=== PATIENT | male | born 1955 | race African-American/Black ===

== ENCOUNTER 2023-10-11 12:13 | Inpatient (IN) | payer OTHER ==
[2023-10-11 13:35] VITALS: BMI 28.7
[2023-10-11] MEDS ORDERED: guaiFENesin 600 MG TABLET.ER (FP) PO PRN (15:14)
[2023-10-11] MEDS ORDERED: NALOXONE HCL 0.4 MG/ML VIAL IM PRN (15:14)
[2023-10-11] MEDS ORDERED: BENZONATATE 200 MG CAPSULE PO PRN (15:14)
[2023-10-11] MEDS ORDERED: ACETAMINOPHEN 325 MG TABLET (FP) PO PRN (15:14)
[2023-10-11] MEDS ORDERED: BENZOCAINE/MENTHOL (CHLORASEPTIC ) LOZENGE MM PRN (15:14)
[2023-10-11] MEDS ORDERED: POLYETHYLENE GLYCOL (HEALTHYLAX) 3350 17 GM PACKET PO PRN (15:14)
[2023-10-11] MEDS ORDERED: IBUPROFEN 600 MG TABLET (FP) PO PRN (15:14)
[2023-10-11] MEDS ORDERED: MAG HYDROX/AL HYDROX/SIMETH 30 ML UNIT-DOSE CUP PO PRN (15:14)
[2023-10-11] MEDS ORDERED: hydrOXYzine PAMOATE 25 MG CAPSULE (FP) PO PRN (15:14)
[2023-10-11] MEDS ORDERED: IBUPROFEN 400 MG TABLET (FP) PO PRN (15:14)
[2023-10-11] MEDS ORDERED: MAGNESIUM HYDROX 2400MG/30ML ORAL SUSPENSION 30 ML CUP PO PRN (15:14)
[2023-10-11] MEDS ORDERED: LOPERAMIDE HCL 2 MG CAPSULE PO PRN (15:14)
[2023-10-11] MEDS ORDERED: NALOXONE HCL (KLOXXADO) 8 MG SPRAY NS PRN (15:14)
[2023-10-11] MEDS ORDERED: ASPIRIN 81 MG CHEWABLE TABLETS ONE (18:21)
[2023-10-11] MEDS: ASPIRIN 81 MG CHEWABLE TABLETS PO SCH (18:23)
[2023-10-11] MEDS ORDERED: ATORVASTATIN CA 80 MG TABLET (FP) PO SCH (22:00)
[2023-10-11] MEDS: MELATONIN 5 MG TABLETS PO SCH (22:45)
[2023-10-11] MEDS: THIAMINE HCL 100 MG TABLET (FP) PO SCH (22:46)
[2023-10-12] MEDS: PRENATAL VITAMINS W/ FOLIC ACID TABLET (FP) PO SCH (10:28)
[2023-10-12] MEDS: PATIENT'S OWN MEDICATION (NON-FORMULARY) (Losartan/Hydrochlorothiazide [Losartan-Hctz 100- PO SCH (10:28)
[2023-10-12] MEDS: TAMSULOSIN HCL 0.4 MG PO SCH (10:28)
[2023-10-12] MEDS: METOPROLOL SUCCINATE PO SCH (10:28)
[2023-10-12] MEDS: ASPIRIN 81 MG CHEWABLE TABLETS PO SCH (10:28)
[2023-10-12 11:38] LABS: HEMATOCRIT 37.7 % (35.4-49); HEMOGLOBIN 12.5 GM/dL (11.7-16.9); MCH 31.5 pg (25.7-33.7); MCHC 33.2 g/dl (32.0-35.9); MEAN CELL VOLUME 94.8 fl (80-96); MEAN PLT VOLUME 7.9 fl (7.5-11.1); PLATELET COUNT 176 10^3/uL (134-434); RBC 3.98 M/mm3 (4.00-5.60); RDW 13.2 % (11.9-15.9); WHITE BLOOD COUNT 6.4 K/mm3 (4.0-10.0)
[2023-10-12 12:05] LABS: CHLORIDE 109 mmol/L (98-107); POTASSIUM 3.7 mmol/L (3.5-5.1); SODIUM 144 mmol/L (136-145)
[2023-10-12 12:07] LABS: BLOOD UREA NITROGEN 15.9 mg/dL (7-18)
[2023-10-12 12:10] LABS: ANION GAP 6 mmol/L (4-13); CO2 29 mmol/L (21-32); GLUCOSE,RANDOM 109 mg/dL (74-106); SGOT/AST 18 U/L (15-37); SGPT/ALT 21 U/L (13-61)
[2023-10-12 12:11] LABS: ALBUMIN 2.9 g/dl (3.4-5.0); CREATININE 1.1 mg/dL (0.55-1.3)
[2023-10-12 12:12] LABS: BILIRUBIN,TOTAL 0.3 mg/dL (0.2-1); TOT PROT 6.5 g/dl (6.4-8.2)
[2023-10-12 12:13] LABS: ALK PHOS 77 U/L (45-117)
[2023-10-12 16:30] LABS: EPI CELLS 14 /uL (0-25.1); HYALINE CASTS 1 /uL (0-3.1); PH,URINE 5.5 (5.0-8.0); URINE APPEARANCE CLEAR; URINE BACTERIA 11 /uL (0-1359); URINE BILIRUBIN NEGATIVE (NEGATIVE); URINE COLOR YELLOW; URINE GLUCOSE (UA) NEGATIVE (NEGATIVE); URINE KETONE NEGATIVE (NEGATIVE); URINE LEUK ESTERASE 2+ (NEGATIVE); URINE NITRITE NEGATIVE (NEGATIVE); URINE PROTEIN NEGATIVE (NEGATIVE); URINE RBC 6 /uL (0-23.9); URINE UROBILINOGEN 0.2 mg/dL (0.2-1.0); URINE WBC 188 /uL (0-25.8)
[2023-10-12] MEDS: MELATONIN 5 MG TABLETS PO SCH (21:22)
[2023-10-12] MEDS: THIAMINE HCL 100 MG TABLET (FP) PO SCH (21:22)
[2023-10-12] MEDS: ATORVASTATIN CA PO SCH (21:22)
[2023-10-13] MEDS: TAMSULOSIN HCL 0.4 MG PO SCH (09:20)
[2023-10-13] MEDS: PATIENT'S OWN MEDICATION (NON-FORMULARY) (Losartan/Hydrochlorothiazide [Losartan-Hctz 100- PO SCH (09:20)
[2023-10-13] MEDS: PRENATAL VITAMINS W/ FOLIC ACID TABLET (FP) PO SCH (09:21)
[2023-10-13] MEDS: METOPROLOL SUCCINATE PO SCH (09:22)
[2023-10-13] MEDS: ASPIRIN 81 MG CHEWABLE TABLETS PO SCH (09:23)
[2023-10-13] MEDS ORDERED: PENICILLIN G BENZATHINE 2,400,000 UNIT/4 ML PFS IM ONE (11:00)
[2023-10-13] MEDS: ATORVASTATIN CA PO SCH (21:19)
[2023-10-13] MEDS: THIAMINE HCL 100 MG TABLET (FP) PO SCH (21:19)
[2023-10-13] MEDS: MELATONIN 5 MG TABLETS PO SCH (21:20)
[2023-10-14] MEDS: ASPIRIN 81 MG CHEWABLE TABLETS PO SCH (10:15)
[2023-10-14] MEDS: PATIENT'S OWN MEDICATION (NON-FORMULARY) (Losartan/Hydrochlorothiazide [Losartan-Hctz 100- PO SCH (10:16)
[2023-10-14] MEDS: METOPROLOL SUCCINATE PO SCH (10:17)
[2023-10-14] MEDS: TAMSULOSIN HCL 0.4 MG PO SCH (10:17)
[2023-10-14] MEDS: PRENATAL VITAMINS W/ FOLIC ACID TABLET (FP) PO SCH (10:18)
[2023-10-14] MEDS: BACLOFEN 10 MG TABLET (FP) PO SCH ×2 (10:19→21:11)
[2023-10-14] MEDS: THIAMINE HCL 100 MG TABLET (FP) PO SCH (21:11)
[2023-10-14] MEDS: ATORVASTATIN CA PO SCH (21:11)
[2023-10-14] MEDS: MELATONIN 5 MG TABLETS PO SCH (21:11)
[2023-10-15] MEDS: PRENATAL VITAMINS W/ FOLIC ACID TABLET (FP) PO SCH (09:28)
[2023-10-15] MEDS: ASPIRIN 81 MG CHEWABLE TABLETS PO SCH (09:28)
[2023-10-15] MEDS: BACLOFEN 10 MG TABLET (FP) PO SCH ×2 (09:28→21:10)
[2023-10-15] MEDS: TAMSULOSIN HCL 0.4 MG PO SCH (09:29)
[2023-10-15] MEDS: METOPROLOL SUCCINATE PO SCH (09:29)
[2023-10-15] MEDS: PATIENT'S OWN MEDICATION (NON-FORMULARY) (Losartan/Hydrochlorothiazide [Losartan-Hctz 100- PO SCH (09:29)
[2023-10-15] MEDS: MELATONIN 5 MG TABLETS PO SCH (21:10)
[2023-10-15] MEDS: ATORVASTATIN CA PO SCH (21:10)
[2023-10-15] MEDS: THIAMINE HCL 100 MG TABLET (FP) PO SCH (21:10)
[2023-10-16] MEDS: ASPIRIN 81 MG CHEWABLE TABLETS PO SCH (09:28)
[2023-10-16] MEDS: BACLOFEN 10 MG TABLET (FP) PO SCH ×2 (09:28→21:34)
[2023-10-16] MEDS: METOPROLOL SUCCINATE PO SCH (09:29)
[2023-10-16] MEDS: PATIENT'S OWN MEDICATION (NON-FORMULARY) (Losartan/Hydrochlorothiazide [Losartan-Hctz 100- PO SCH (09:29)
[2023-10-16] MEDS: TAMSULOSIN HCL 0.4 MG PO SCH (09:29)
[2023-10-16] MEDS: PRENATAL VITAMINS W/ FOLIC ACID TABLET (FP) PO SCH (09:29)
[2023-10-16] MEDS: ATORVASTATIN CA PO SCH (21:34)
[2023-10-16] MEDS: THIAMINE HCL 100 MG TABLET (FP) PO SCH (21:34)
[2023-10-16] MEDS: MELATONIN 5 MG TABLETS PO SCH (21:35)
[2023-10-17] MEDS: TAMSULOSIN HCL 0.4 MG PO SCH (09:29)
[2023-10-17] MEDS: PRENATAL VITAMINS W/ FOLIC ACID TABLET (FP) PO SCH (09:41)
[2023-10-17] MEDS: BACLOFEN 10 MG TABLET (FP) PO SCH ×2 (09:41→21:37)
[2023-10-17] MEDS: ASPIRIN 81 MG CHEWABLE TABLETS PO SCH (09:41)
[2023-10-17] MEDS: PATIENT'S OWN MEDICATION (NON-FORMULARY) (Losartan/Hydrochlorothiazide [Losartan-Hctz 100- PO SCH (09:42)
[2023-10-17] MEDS: METOPROLOL SUCCINATE PO SCH (09:42)
[2023-10-17] MEDS: MELATONIN 5 MG TABLETS PO SCH (21:37)
[2023-10-17] MEDS: ATORVASTATIN CA PO SCH (21:37)
[2023-10-17] MEDS: THIAMINE HCL 100 MG TABLET (FP) PO SCH (21:37)
[2023-10-18] MEDS: PRENATAL VITAMINS W/ FOLIC ACID TABLET (FP) PO SCH (10:20)
[2023-10-18] MEDS: ASPIRIN 81 MG CHEWABLE TABLETS PO SCH (10:20)
[2023-10-18] MEDS: TAMSULOSIN HCL 0.4 MG PO SCH (10:21)
[2023-10-18] MEDS: PATIENT'S OWN MEDICATION (NON-FORMULARY) (Losartan/Hydrochlorothiazide [Losartan-Hctz 100- PO SCH (10:21)
[2023-10-18] MEDS: BACLOFEN 10 MG TABLET (FP) PO SCH ×2 (10:21→21:14)
[2023-10-18] MEDS: METOPROLOL SUCCINATE PO SCH (10:22)
[2023-10-18] MEDS: THIAMINE HCL 100 MG TABLET (FP) PO SCH (21:14)
[2023-10-18] MEDS: MELATONIN 5 MG TABLETS PO SCH (21:14)
[2023-10-18] MEDS: ATORVASTATIN CA PO SCH (21:14)
[2023-10-19 06:52] VITALS: TEMP 97.5
[2023-10-19] MEDS ORDERED: PENICILLIN G BENZATHINE 2,400,000 UNIT/4 ML PFS IM ONE (08:38)
[2023-10-19] MEDS: TAMSULOSIN HCL 0.4 MG PO SCH (08:50)
[2023-10-19] MEDS: ASPIRIN 81 MG CHEWABLE TABLETS PO SCH (09:02)
[2023-10-19] MEDS: BACLOFEN 10 MG TABLET (FP) PO SCH (09:02)
[2023-10-19] MEDS: PRENATAL VITAMINS W/ FOLIC ACID TABLET (FP) PO SCH (09:02)
[2023-10-19] MEDS: METOPROLOL SUCCINATE PO SCH (09:04)
[2023-10-19] MEDS: PATIENT'S OWN MEDICATION (NON-FORMULARY) (Losartan/Hydrochlorothiazide [Losartan-Hctz 100- PO SCH (09:04)
[2023-10-19 09:14] VITALS: BP 121/73; PULSE 67; RESP 16
[2023-10-20] MEDS ORDERED: PENICILLIN G BENZATHINE 2,400,000 UNIT/4 ML PFS IM ONE (10:00)
[2023-10-27] MEDS ORDERED: PENICILLIN G BENZATHINE 2,400,000 UNIT/4 ML PFS IM ONE (10:00)
== END 2023-10-19 10:35 | disposition home or self-care (01) | DRG 895 ==
LOC: YASAS 12:13 → Y3E 18:22
PROVIDERS: ADMIT Allergy & Immunology; ATTEND Psychiatry & Neurology Pain Medicine
PROC: HZ42ZZZ Group Counseling for Substance Abuse Treatment, Cognitive-Behavioral (ICD-10-PCS; principal; 2023-10-11)
DX: F14.20 Cocaine dependence, uncomplicated (principal); E78.5 Hyperlipidemia, unspecified; I10 Essential (primary) hypertension; M54.50 Low back pain, unspecified; G89.29 Other chronic pain; N40.0 Benign prostatic hyperplasia without lower urinary tract symptoms; R76.11 Nonspecific reaction to tuberculin skin test without active tuberculosis; R76.8 Other specified abnormal immunological findings in serum; Z20.2 Contact with and (suspected) exposure to infections with a predominantly sexual mode of transmission; Z99.89 Dependence on other enabling machines and devices
CPT/HCPCS: 36415; 71046-TC-FY; 80053; 80307; 81003; 85027; 86593; 86780; 87635; 87811; 93005; 93010; J0475